=== PATIENT | male | born 1955 | race Caucasian/White ===

== ENCOUNTER 2018-06-26 15:26 | Inpatient (IN) | payer OTHER ==
[~2018-06-26] VITALS: Ht 175.3 cm; Wt 89.4 kg
[~2018-06-26 15:26] MED LIST: METFORMIN HCL1000 M1 PO
--- NOTE | 2018-06-26 16:09 | ED GENERAL ADULT ---
History of Present Illness General Chief Complaint: General Adult Stated Complaint: SIB GERMAIN HYPOTENSIV/DIZZINESS Source: patient, family, old records Exam Limitations: no limitations Vital Signs & Intake/Output Vital Signs & Intake/Output Vital Signs Date Time Temp Pulse Resp B/P B/P Pulse O2 O2 Flow FiO2 Mean Ox Delivery Rate 06/26 1619 90/48 06/26 1538 97.1 92 22 94/67 97 Allergies Coded Allergies: No Known Allergies (08/25/17) Reconcile Medications Metformin HCl 1,000 MG TABLET 1 TAB PO BID DIABETES (Reported) Triage Note: PER SISTER (PT KWINHAGAK) DISRRHEA AND VOMITING X 5-6 DAYS SEEN BY PMD TODAY AND BP WAS LOW, PT TOOK HIS LISINOPRIL THIS AM PT PASSED OUT LAST WEEKEND Triage Nurses Notes Reviewed? yes HPI: 62yo male with PMH of DM, EtOH subance abuse. Patient states that last weekend he began having profuse nausea vomiting and diarrhea. Patient states that so bad to the point that he had a syncopal episode during a vomiting episode. Patient is unsure how long he was L4. Patient states that since then he has been anorexic. He denies any further nausea vomiting or diarrhea however just has had very little appetite. He states that he's been having chicken soup occasionally but not as been it. Patient's sister came over to visit him today and then took him to his primary care physician Jeff found to be hypotensive. Patient's at the emergency department for evaluation. Patient denies any chest pain or palpitations. There is no shortness of breath. No coughing. No abdominal pain. Patient states that his last alcoholic drink was over a year ago. Past History Travel History Traveled to [place] past 21 day No Medical History Any Pertinent Medical History? see below for history Neurological: NONE EENT: NONE Cardiovascular: NONE Respiratory: NONE Gastrointestinal: NONE Hepatic: NONE Renal: NONE Musculoskeletal: NONE Psychiatric: alcohol dependence Endocrine: diabetes Blood Disorders: NONE Cancer(s): NONE COMMERCIAL DRIVER/Reproductive: NONE Surgical History Surgical History: non-contributory Psychosocial History What is your primary language Sinhala Tobacco Use: Never used ETOH Use: alcoholic Illicit Drug Use: denies illicit drug use Family History Hx Contributory? No Review of Systems Review of Systems Constitutional: Reports: see HPI, weakness. EENTM: Reports: no symptoms. Respiratory: Reports: no symptoms. Cardiovascular: Reports: no symptoms. GI: Reports: see HPI. Genitourinary: Reports: no symptoms. Musculoskeletal: Reports: no symptoms. Skin: Reports: no symptoms. Neurological/Psychological: Reports: no symptoms. Hematologic/Endocrine: Reports: no symptoms. Immunologic/Allergic: Reports: no symptoms. All Other Systems: Reviewed and Negative Physical Exam Physical Exam General Appearance: well developed/nourished, alert, awake, anxious, mild distress Head: atraumatic, normal appearance Eyes: Bilateral: PERRL, EOMI. Ears, Nose, Throat: normal pharynx, DRY MUCOSA Neck: normal inspection, supple, full range of motion Respiratory: normal breath sounds, chest non-tender, no respiratory distress, lungs clear Cardiovascular: regular rate/rhythm, normal peripheral pulses Gastrointestinal: normal bowel sounds, soft, non-tender, no organomegaly Back: normal inspection, normal range of motion Extremities: normal inspection, normal capillary refill, normal range of motion, no edema Neurologic/Psych: no motor/sensory deficits, awake, alert, oriented x 3, normal mood/affect Skin: intact, normal color, warm/dry Core Measures ACS in differential dx? No CVA/TIA Diagnosis: No Sepsis Present: No Sepsis Focused Exam Completed? No Progress Differential Diagnoses I considered the following diagnoses in my evaluation of the patient: [AMI, electrolyte abnormality, dehydration] Plan of Care: Orders Procedure Date/time Status LACTIC ACID 06/26 1840 Active Add-on Test (ER Only) 06/26 1749 Active CIWA 06/26 1749 Active ETHANOL 06/26 1602 Active MIXED VENOUS BLOOD GAS (GEN) 06/26 1541 Active Saline Lock 06/26 1540 Active Vital Signs 06/26 1540 Active Telemetry/Admissions Consultant 06/26 1540 Active CULTURE,URINE 06/26 1540 Active BLOOD CULTURE 06/26 1540 Active URINALYSIS 06/26 1540 Active TROPONIN LEVEL 06/26 1540 Active PHOSPHORUS 06/26 1540 Active MAGNESIUM 06/26 1540 Active LIPASE 06/26 1540 Active LACTIC ACID 06/26 1540 Active COMPREHENSIVE METABOLIC PANEL 06/26 1540 Active CBC WITHOUT DIFFERENTIAL 06/26 1540 Complete EKG 06/26 1540 Active Current Medications Sig/Geo Start time Last Medication Dose Stop Time Status Admin Magnesium Sulfate 1 GM Q2H 06/26 1715 AC (Mag Sulfate in D5) 06/26 2114 Dextrose/Water 100 ML (D5W) Sodium Chloride 2,721.54 ML ONCE 06/26 1545 AC 06/26 (Normal Saline 0.9%) 1645 Laboratory Tests 06/26/18 1602: Anion Gap 15, Estimated GFR 52 L, BUN/Creatinine Ratio 12.9, Glucose 170 H, Lactic Acid 1.3, Calcium 8.8, Phosphorus 2.9, Magnesium 0.9 *L, Total Bilirubin 0.5, AST 26, ALT 49, Alkaline Phosphatase 83, Troponin I < 0.01, Total Protein 7.4, Albumin 4.5, Globulin 2.9, Albumin/Globulin Ratio 1.6, Lipase < 10 L, CBC w Diff NO MAN DIFF REQ, RBC 5.05, MCV 87.2, MCH 29.4, MCHC 33.7, RDW 13.9, MPV 7.6, Gran % 71.8, Lymphocytes % 14.9 L, Monocytes % 10.5 H, Eosinophils % 1.9, Basophils % 0.9, Absolute Granulocytes 7.5 H, Absolute Lymphocytes 1.6, Absolute Monocytes 1.1 H, Absolute Eosinophils 0.2, Absolute Basophils 0.1, Serum Alcohol Pending 06/26/18 1541: Lipase Cancelled Microbiology 06/26 1630 BLOOD: Blood Culture - RECD 06/26 1602 BLOOD: Blood Culture - RECD 06/26 1540 URINE ROUT: Urine Culture - COLB Diagnostic Imaging: Viewed by Me: Radiology Read. Discussed w/RAD: Radiology Read. CXR Impression: PATIENT: OVIDIO KRUSE PRESENT AGE: 62 PATIENT ACCOUNT NO: [id number] : 57 LOCATION: [facility] ORDERING PHYSICIAN: Jerilyn SEVILLA SERVICE DATE: 06/26/18 EXAM TYPE: RAD - XRY-PORTABLE CHEST XRAY EXAMINATION: XR PORTABLE CHEST CLINICAL INFORMATION: Fever. COMPARISON: None TECHNIQUE: Portable frontal view of the chest was obtained. FINDINGS: No airspace opacities or pleural effusions are seen. The cardiomediastinal silhouette is normal. No acute osseous abnormality is seen. IMPRESSION: Clear lungs. No acute process. DICTATED BY: Rell Escobedo MD DATE /TIME DICTATED:06/26/181739 RECOVERY ROOM NURSE:TAMI DATE/TIME TRANSCRIBED: 06/26/181739 CONFIDENTIAL, DO NOT COPY WITHOUT APPROPRIATE AUTHORIZATION. < Electronically signed in Other Vendor System> SIGNED BY: Rell Escobedo MD 06/26/18 6820 Initial ED EKG: NSR, no ST T wave changes Departure Departure Disposition: STILL A PATIENT Condition: Stable Clinical Impression Primary Impression: Hypomagnesemia Secondary Impressions: Hypotension Referrals: Germain PETER,Erwin Brown (PCP/Family) Departure Forms: Customer Survey General Discharge Information Admission Note Spoke With: Yoni Albright MD Documentation of Exam: Documentation of any treatments & extenuating circumstances including Concerns Regarding Discharge (functional status, medication knowledge or non-compliance, living conditions, etc.) that warrant an admission rather than observation: [ Patient to be admitted to telemetry for hypomagnesemia and hypotension. Patient is very dehydrated. Patient needs magnesium replacement, telemetry monitoring, aggressive hydration.] Critical Care Note Critical Care Note Critical Care Time: non-applicable
[2018-06-26 16:15] LABS: ABSOLUTE BASOPHIL COUNT 0.1 /CUMM (0.0-0.2); ABSOLUTE EOSINOPHIL COUNT 0.2 /CUMM (0.0-0.7); ABSOLUTE GRANULOCYTE CT 7.5 /CUMM (1.4-6.5); ABSOLUTE LYMPH COUNT 1.6 /CUMM (1.2-3.4); ABSOLUTE MONOCYTE COUNT 1.1 /CUMM (0.10-0.60); BASOPHIL % 0.9 % (0.0-2.0); EOSINOPHIL % 1.9 % (0-5); GRANULOCYTE % 71.8 % (42.2-75.2); HEMATOCRIT 44.1 % (42-52); MEAN CORPUSCULAR HGB 29.4 PG (27.0-31.0); MEAN CORPUSCULAR HGB CONC 33.7 G/DL (33.0-37.0); MEAN CORPUSCULAR VOLUME 87.2 FL (80.0-94.0); MEAN PLATELET VOLUME 7.6 FL (7.4-10.4); PLATELET COUNT 267 /CUMM (130-400); RBC DISTRIBUTION WIDTH 13.9 % (11.5-14.5); RED BLOOD CELL CT 5.05 /CUMM (4.70-6.10); WHITE BLOOD CELL COUNT 10.5 /CUMM (4.8-10.8)
--- NOTE | 2018-06-26 17:53 | RADIOLOGY REPORT ---
EXAMINATION: XR PORTABLE CHEST CLINICAL INFORMATION: Fever. COMPARISON: None TECHNIQUE: Portable frontal view of the chest was obtained. FINDINGS: No airspace opacities or pleural effusions are seen. The cardiomediastinal silhouette is normal. No acute osseous abnormality is seen. IMPRESSION: Clear lungs. No acute process.
--- NOTE | 2018-06-26 18:17 | History & Physical ---
Tobias Wilson 06/26/181815: General Information and HPI History of Present Illness: 62 YO M with PMH of DM, and a previous hx alcohol and substance abuse (sober until relapse 11 months ago??), was sent to [facility] ED by his PCP after finding a low systolic pressure sitting in the 80s. In the ED patient was found to be hypotensive (90/48) and Mg level was found to be 0.9. The previous week the patient had an episode of dizziness resulting in an unwitnessed mechanical fall. He believes he lost conciousness and is unsure of how long the durations of LOC was but he estimates it was at least a few minutes. Upon waking up, pt stood up and walked to his recliner until the dizziness passed. Patient reports having an episode of non-bloody, non-bilious vomiting, as well as 2 episodes of diarrhea after this incident. This entire week he has had poor PO intake and has felt generally fatigued. Patient denies any auras, changes in vision, ringing sensations in ears, palpitations, chest pain, difficulty breathing, bowel/bladder incontinence, any weakness, or tingling sensation in extremities before, during, or after the incident. He denies any changing of his dietary habits/intake anytime within a month before the incident. Past History Travel History Traveled to [place] past 21 day No Medical History Neurological: NONE EENT: NONE Cardiovascular: NONE Respiratory: NONE Gastrointestinal: NONE Hepatic: NONE Renal: NONE Musculoskeletal: NONE Psychiatric: alcohol dependence Endocrine: diabetes Blood Disorders: NONE Cancer(s): NONE SUPERVISOR GLYCERIN/Reproductive: NONE Surgical History Surgical History: non-contributory Past Family/Social History Psychosocial History ETOH Use: alcoholic Illicit Drug Use: denies illicit drug use Review of Systems Review of Systems Constitutional: Reports: see HPI. Exam & Diagnostic Data Last 24 Hrs of Vital Signs/I&O Vital Signs Date Time Temp Pulse Resp B/P B/P Pulse O2 O2 Flow FiO2 Mean Ox Delivery Rate 06/27 0700 97.6 86 18 140/82 96 Room Air 06/26 2144 98.4 95 18 136/76 97 Room Air 06/26 1907 124/78 06/26 1900 97.4 90 18 161/87 97 Room Air 06/26 1619 90/48 06/26 1538 97.1 92 22 94/67 97 Intake & Output 06/27 0800 06/27 0000 06/26 1600 Intake Total 120 120 Output Total Balance 120 120 Intake, Oral 120 120 Patient 209 lb 209 lb 200 lb Weight Weight Bed scale Bed scale Measurement Method Physical Exam General Appearance Alert, Oriented X3, Cooperative Skin No Rashes Skin Temp/Moisture Exam: Warm/Dry Sepsis Skin Exam (color): Normal for Ethnicity HEENT Atraumatic, PERRLA, EOMI Neck Supple, No JVD Lymphatic Axillary nl, Cervical nl Cardiovascular Regular Rate, Normal S1, Normal S2 Lungs Clear to Auscultation, Normal Air Movement Abdomen Normal Bowel Sounds, Soft, No Tenderness Neurological Strength at 5/5 X4 Ext, Cranial Nerves 3-12 NL Extremities Normal Pulses, No Tenderness/Swelling Vascular No Prolonged Hepato Jugular Reflex, No carotid bruit Last 24 Hrs of Labs/Jeremiah: 06/26/18 1541: Lipase Cancelled Microbiology 06/26 1630 BLOOD: Blood Culture - RECD 06/26 1602 BLOOD: Blood Culture - RECD 06/26 1540 URINE ROUT: Urine Culture - COLB Assessment/Plan Assessment: 62 YO M with PMH of DM, and a previous hx alcohol and substance abuse (sober until relapse 11 months ago??), was sent to [facility] ED by his PCP after finding a low systolic pressure sitting in the 80s. # Hypotension (Idoipathic Orthostatic vs Dehydration) - NS bolus in ER showed improvement in pressure from 90 to 124. - Start maintenance fluids - Encourage PO intake (non restrictive diet) - Orthostatics and Vitals Q4 - PT to assess fall risk - Admit to telemetry # Hypomagnesemia - possibly due to decreased PO intake - possibly due to decreased absorption / increased urinary excretion 2/2 T2DM - start IV Mg - monitor Mg and BEP daily # DM - NSS/Accuchecks # Depression - Continue sertraline As Ranked By This Provider Problem List: 1. Hypotension 2. Hypomagnesemia 3. Fall Core Measures/Misc (08/03) Acute Coronary Syndrome ACS Diagnosis: No Congestive Heart Failure Congestive Heart Failure Diagnosis No Cerebrovascular Accident CVA/TIA Diagnosis: No VTE (View Protocol) VTE Risk Factors Age>40 No Mechanical VTE Prophylaxis d/t Other No VTE Pharm Prophylaxis d/t Other Sepsis (View protocol) If YES complete Sepsis Event Note If YES complete Sepsis Event Note Feli Seymour MD 06/26/18 1825: Core Measures/Misc (08/03) Acute Coronary Syndrome ACS Diagnosis: No Congestive Heart Failure Congestive Heart Failure Diagnosis No Cerebrovascular Accident CVA/TIA Diagnosis: No VTE (View Protocol) VTE Risk Factors Age>40 No Mechanical VTE Prophylaxis d/t Other No VTE Pharm Prophylaxis d/t Other Sepsis (View protocol) Sepsis Present: No If YES complete Sepsis Event Note If YES complete Sepsis Event Note Resident Review Statement Resident Statement: examined this patient, discussed with event marketing intern, agreed with event marketing intern Other Findings: 62-year-old gentleman with past medical history of diabetes, alcohol and substance abuse in the past, came to [facility] from his primary care physician office with a low blood pressure systolic 80s. According to the patient he was in usual state of health until a week ago following which he had dizziness followed by fall and lost consciousness. Patient is not sure for how many minutes he was unconscious. He woke up by himself and took rest in his recliner and spoke to his sister who is a nurse who suggested to take rest. During this episode patient denied chest pain, palpitation, headache, ringing of ears. Patient had vomiting following the fall with 2 episodes of diarrhea with no blood in it. Patient to crest the whole day. According to him he was not eating and drinking well. For the past 1 week he felt very weak. Today his daughter visited him and took him to his primary care physician and found to have low blood pressure hence sent to [facility] ED. At present patient denies chest pain, palpitation, nausea, vomiting, abdominal pain, weakness, diarrhea, constipation. Patient has never seen a glassware engraver in the past. No history of any stress test/echocardiogram done in the past. Past surgical history-inguinal hernia repair Social ifemebw-okm-jkcapg, alcoholic quit 11 months ago. No illicit drug use Family ccgqbum-bvyeuc-bzhkd cancer no history of any heart disease. No hardware placed in the body. On examination Patient conscious, well oriented. No acute distress HEENT-normal Extraocular movements-normal Cardiovascular [id number] no murmur Respiratory system-normal vesicular breath sounds Abdomen-soft bowel sounds heard Bilateral extremities-no edema pulses felt. GENERAL SUPERVISOR-3-12 cranial nerves intact. Strength 5 x 5. No decreased sensation. Admission vitals Temperature 97.1, pulse rate 92, respiratory rate 22, blood pressure 94/67---> 90/48 Admission labs WBC 10.5, hemoglobin 14.9, platelet count 267, sodium 135, potassium 4.5, BUN 18 , creatinine 1.4, lactic acid 1.3, glucose 170, phosphorus 2.9, magnesium 0.9, troponin 0 0.01, Pending urinalysis, blood culture, urine culture ED treatment Normal sinus bolus 2721.54 mL [30 mL/kg], magnesium 1 g in D5W x2 Seen by Dr. Waite in 2017 for colonoscopy and found to have 2 polyps with mild sigmoid diverticulosis, small internal hemorrhoids. Assessment and plan Problem list Hypotension secondary to dehydration-patient was given normal saline bolus in the ED. His blood pressure improved from systolic 90s-124. We will keep him on maintenance fluids at 75 mL/h. We will encourage p.o. intake. Vitals every shift Avoid antihypertensives Physical therapy in the a.m. in view of history of fall If patient has any telemetry events we will place cardiology consult Hypomagnesemia-his hypomagnesemia can be secondary due to decreased p.o. intake. Patient denies using any dprz-kki-ckoegfb medications/PPI/antibiotics. Patient denies history of hypomagnesemia in the past. His calcium is normal. Patient was given IV magnesium 2 g. We will follow with BEP and magnesium. Wagjfybr-Lpda-Ccdn and NovoLog sliding scale insulin. Depression-we will continue sertraline. Diet-heart healthy diet DVT prophylaxis-Lovenox CODE STATUS-full code Jose Ramon PETERYoni 06/27/18 0052: General Information and HPI MD Statement: I have seen and personally examined OVIDIO KRUSE and documented this H&P. The patient is a 63 year old M who presented with a patient stated chief complaint of [hypotension]. Source of Information: patient Allergies/Medications Allergies: Coded Allergies: No Known Allergies (08/25/17) Home Med list Metformin HCl 1,000 MG TABLET 1 TAB PO BID DIABETES (Reported) Sertraline HCl 50 MG TABLET 1 TAB PO DAILY DEPRESSION (Reported) Past History Medical History Psychiatric: alcohol dependence Endocrine: diabetes Past Family/Social History Psychosocial History Smoking Status: Never Smoked ETOH Use: alcoholic Illicit Drug Use: denies illicit drug use Review of Systems Review of Systems Constitutional: Reports: see HPI. Exam & Diagnostic Data Last 24 Hrs of Vital Signs/I&O Vital Signs Date Time Temp Pulse Resp B/P B/P Pulse O2 O2 Flow FiO2 Mean Ox Delivery Rate 06/26 2144 98.4 95 18 136/76 97 Room Air 06/26 1907 124/78 06/26 1900 97.4 90 18 161/87 97 Room Air 06/26 1619 90/48 06/26 1538 97.1 92 22 94/67 97 Intake & Output 06/27 0800 06/27 0000 06/26 1600 Intake Total 0 Output Total Balance 0 Intake, Oral 0 Patient 209 lb 200 lb Weight Weight Bed scale Measurement Method Physical Exam General Appearance Alert, Oriented X3, Cooperative Skin No Rashes Skin Temp/Moisture Exam: Warm/Dry Sepsis Skin Exam (color): Normal for Ethnicity HEENT Atraumatic, PERRLA, EOMI Neck Supple, No JVD Lymphatic Axillary nl, Cervical nl Cardiovascular Regular Rate, Normal S1, Normal S2 Lungs Clear to Auscultation, Normal Air Movement Abdomen Normal Bowel Sounds, Soft, No Tenderness Last 24 Hrs of Labs/Jeremiah: Laboratory Tests 06/26/18 1840: Lactic Acid Cancelled 06/26/18 1602: Anion Gap 15, Estimated GFR 52 L, BUN/Creatinine Ratio 12.9, Glucose 170 H, Lactic Acid 1.3, Calcium 8.8, Phosphorus 2.9, Magnesium 0.9 *L, Total Bilirubin 0.5, AST 26, ALT 49, Alkaline Phosphatase 83, Troponin I < 0.01, Total Protein 7.4, Albumin 4.5, Globulin 2.9, Albumin/Globulin Ratio 1.6, Lipase < 10 L, CBC w Diff NO MAN DIFF REQ, RBC 5.05, MCV 87.2, MCH 29.4, MCHC 33.7, RDW 13.9, MPV 7.6, Gran % 71.8, Lymphocytes % 14.9 L, Monocytes % 10.5 H, Eosinophils % 1.9, Basophils % 0.9, Absolute Granulocytes 7.5 H, Absolute Lymphocytes 1.6, Absolute Monocytes 1.1 H, Absolute Eosinophils 0.2, Absolute Basophils 0.1, Serum Alcohol < 10.0 06/26/18 1541: Lipase Cancelled Microbiology 06/26 1630 BLOOD: Blood Culture - RECD 06/26 1602 BLOOD: Blood Culture - RECD 06/26 1540 URINE ROUT: Urine Culture - COLB Core Measures/Misc (08/03) Sepsis (View protocol) If YES complete Sepsis Event Note If YES complete Sepsis Event Note Attending MD Review Statement Attending Statement Attending MD Statement: examined this patient, discuss w/resident/PA/JOURNEYMAN ELECTRICIAN, agreed w/resident/PA/JOURNEYMAN ELECTRICIAN, reviewed EMR data (avail), reviewed images Attending Assessment/Plan: This patient is a 62-year-old male with a significant past medical history for diabetes, alcohol (quit 11 months ago) and substance abuse, came to [facility] from his primary care physician office with a low blood pressure. According to the patient he was in usual state of health until a week ago following which he had dizziness followed by fall and loss of consciousness. Patient had vomiting following the fall with 2 episodes of diarrhea with no blood in it. For the past 1 week he felt very weak with poor PO intake. Today his daughter visited him and took him to his primary care physician where he was found to have a low blood pressure. Upon evaluation in the ED he is found to be Hypotensive (90s/ 50s), BUN 18, creatinine 1.4, lactic acid 1.3, and magnesium 0.9. The patient will be admitted to telemetry for pre-syncope, hypotension, dehydration and hypo magnesium. Full code.
[2018-06-26] MEDS ORDERED: SERTRALINE HCL50 MG PO (20:44)
[2018-06-26 21:44] VITALS: BP 136/76
[2018-06-27] VITALS (7 sets, daily range): BP systolic 120–140; BP diastolic 64–88
--- NOTE | 2018-06-27 05:24 | PN- Housestaff ---
See Addendum Subjective Follow-up For: Hypertension Hypomagnesemia Complaints: no complaints Tele-Events Since Last Visit: Normal sinus rhythm Subjective: Patient seen and examined at bedside no overnight events. No complaints. Patient denies chest pain, weakness, palpitation, nausea, vomiting, diarrhea. Review of Systems Constitutional: Reports: no symptoms. Cardiovascular: Reports: no symptoms. Respiratory: Reports: no symptoms. Gastrointestinal: Reports: no symptoms. Objective Last 24 Hrs of Vital Signs/I&O Vital Signs Date Time Temp Pulse Resp B/P B/P Pulse O2 O2 Flow FiO2 Mean Ox Delivery Rate 06/264 98.4 95 18 136/76 97 Room Air 06/26 1907 124/78 06/26 1900 97.4 90 18 161/87 97 Room Air 06/26 1619 90/48 06/26 1538 97.1 92 22 94/67 97 Intake & Output 06/27 0800 06/27 0000 06/26 1600 Intake Total 120 Output Total Balance 120 Intake, Oral 120 Patient 209 lb 200 lb Weight Weight Bed scale Measurement Method Physical Exam General Appearance: Alert, Oriented X3, Cooperative, No Acute Distress Cardiovascular: Regular Rate, Normal S1, Normal S2, No Murmurs Lungs: Clear to Auscultation Abdomen: Soft, No Tenderness Current Medications: Current Medications Sig/Geo Start time Last Medication Dose Route Stop Time Status Admin Acetaminophen 650 MG Q6PRN PRN 06/26 183 AC PO Enoxaparin Sodium 0 .STK-MED ONE 06/26 1918 DC SC Enoxaparin Sodium 40 MG DAILY 06/26 183 AC 06/26 SC 1919 Hydrocodone Bitart/ 1 TAB Q6P PRN 06/26 184 AC Acetaminophen PO Hydromorphone HCl 0.5 MG Q4P PRN 06/26 184 AC IV Insulin Aspart 0 TIDAC/HS 06/26 2100 AC SC Magnesium Sulfate 1 GM Q2H 06/27 0300 AC 06/27 Dextrose/Water 100 ML IV 06/27 0659 0522 Magnesium Sulfate 1 GM Q2H 06/26 1715 DC 06/26 Dextrose/Water 100 ML IV 06/26 2114 1842 Sertraline HCl 50 MG DAILY 06/27 0900 AC PO Sodium Chloride 1,000 ML Q13H 06/26 1845 DC 06/26 IV 2037 Sodium Chloride 2,721.54 ML ONCE 06/26 1545 AC 06/26 IV 1645 Last 24 Hrs of Lab/Jeremiah Results Last 24 Hrs of Labs/Mics: Laboratory Tests 06/27/18 0130: Anion Gap 7, Estimated GFR > 60, BUN/Creatinine Ratio 14.5, Magnesium 1.6 06/26/18 1840: Lactic Acid Cancelled 06/26/18 1602: Anion Gap 15, Estimated GFR 52 L, BUN/Creatinine Ratio 12.9, Glucose 170 H, Lactic Acid 1.3, Calcium 8.8, Phosphorus 2.9, Magnesium 0.9 *L, Total Bilirubin 0.5, AST 26, ALT 49, Alkaline Phosphatase 83, Troponin I < 0.01, Total Protein 7.4, Albumin 4.5, Globulin 2.9, Albumin/Globulin Ratio 1.6, Lipase < 10 L, CBC w Diff NO MAN DIFF REQ, RBC 5.05, MCV 87.2, MCH 29.4, MCHC 33.7, RDW 13.9, MPV 7.6, Gran % 71.8, Lymphocytes % 14.9 L, Monocytes % 10.5 H, Eosinophils % 1.9, Basophils % 0.9, Absolute Granulocytes 7.5 H, Absolute Lymphocytes 1.6, Absolute Monocytes 1.1 H, Absolute Eosinophils 0.2, Absolute Basophils 0.1, Serum Alcohol < 10.0 06/26/18 1541: Lipase Cancelled Microbiology 06/26 1630 BLOOD: Blood Culture - RECD 06/26 1602 BLOOD: Blood Culture - RECD 06/26 1540 URINE ROUT: Urine Culture - COLB Assessment/Plan Assessment: 62-year-old gentleman with past medical history of diabetes, alcohol and substance abuse in the past, came to [facility] from his primary care physician office with a low blood pressure Assessment and plan Hypotension secondary to dehydration-patient blood pressure improved with normal saline bolus. We will encourage p.o. intake Avoid antihypertensive Continue telemetry Physical therapy consult placed Hypomagnesemia-his hypomagnesemia can be secondary due to decreased p.o. intake. Patient denies using any nhjb-lax-kihxewk medications/PPI/antibiotics. Patient denies history of hypomagnesemia in the past. His calcium is normal. Patient is getting IV magnesium. We will follow BEP in the a.m. Hvhedpcm-Loev-Hmiq and NovoLog sliding scale insulin. Depression-we will continue sertraline. Diet-heart healthy diet DVT prophylaxis-Lovenox CODE STATUS-full code Problem List: 1. Hypomagnesemia Pain Ratin Pain Location: NONE Pain Goal: Remain pain free Pain Plan: Tylenol, morphine Tomorrow's Labs & Rationales: CBC,BEP
[2018-06-27 08:26] LABS: ABSOLUTE BASOPHIL COUNT 0 /CUMM (0.0-0.2); ABSOLUTE EOSINOPHIL COUNT 0.2 /CUMM (0.0-0.7); ABSOLUTE LYMPH COUNT 1.2 /CUMM (1.2-3.4); ABSOLUTE MONOCYTE COUNT 0.7 /CUMM (0.10-0.60); BASOPHIL % 0.7 % (0.0-2.0); EOSINOPHIL % 3.9 % (0-5); GRANULOCYTE % 65.2 % (42.2-75.2); MEAN CORPUSCULAR HGB 29.5 PG (27.0-31.0); MEAN CORPUSCULAR HGB CONC 33.9 G/DL (33.0-37.0); MEAN CORPUSCULAR VOLUME 87.1 FL (80.0-94.0); MEAN PLATELET VOLUME 7.4 FL (7.4-10.4); PLATELET COUNT 204 /CUMM (130-400); RBC DISTRIBUTION WIDTH 13.7 % (11.5-14.5); RED BLOOD CELL CT 4.12 /CUMM (4.70-6.10); WHITE BLOOD CELL COUNT 6.2 /CUMM (4.8-10.8)
[2018-06-27 08:43] LABS: HEMATOCRIT 35.9 % (42-52)
[2018-06-28 06:57] VITALS: BP 158/88
[2018-06-28 08:00] LABS: ABSOLUTE BASOPHIL COUNT 0.1 /CUMM (0.0-0.2); ABSOLUTE EOSINOPHIL COUNT 0.3 /CUMM (0.0-0.7); ABSOLUTE GRANULOCYTE CT 4.5 /CUMM (1.4-6.5); ABSOLUTE LYMPH COUNT 1.4 /CUMM (1.2-3.4); ABSOLUTE MONOCYTE COUNT 0.6 /CUMM (0.10-0.60); BASOPHIL % 0.7 % (0.0-2.0); EOSINOPHIL % 4.4 % (0-5); HEMATOCRIT 38.1 % (42-52); MEAN CORPUSCULAR HGB 28.9 PG (27.0-31.0); MEAN CORPUSCULAR HGB CONC 32.9 G/DL (33.0-37.0); MEAN CORPUSCULAR VOLUME 87.8 FL (80.0-94.0); MEAN PLATELET VOLUME 7.8 FL (7.4-10.4); PLATELET COUNT 205 /CUMM (130-400); RBC DISTRIBUTION WIDTH 14.3 % (11.5-14.5); RED BLOOD CELL CT 4.34 /CUMM (4.70-6.10)
--- NOTE | 2018-06-28 09:57 | Patient Discharge Instructions ---
Discharge Instructions General Discharge Information You were seen/treated for: HYPOTENSION Special Instructions: Please follow-up with your PCP within a week after discharge. Diet Continue normal diet: Yes Recommended Diet: Diabetic Activity Full Activity/No Limits: Yes Acute Coronary Syndrome Inclusion Criteria At DC or during hospital stay patient has or had the following: ACS DIAGNOSIS No Discharge Core Measures Meds if any: Prescribed or Continued at Discharge Meds if any: NOT Prescribed or Continued at Discharge Congestive Heart Failure Inclusion Criteria At DC or during hospital stay patient has or had the following: CHF DIAGNOSIS No Discharge Core Measures Meds if any: Prescribed or Continued at Discharge Meds if any: NOT Prescribed or Continued at Discharge Cerebrovascular accident Inclusion Criteria At DC or during hospital stay patient has or had the following: CVA/TIA Diagnosis No Discharge Core Measures Meds if any: Prescribed or Continued at Discharge Meds if any: NOT Prescribed or Continued at Discharge Venous thromboembolism Inclusion Criteria VTE Diagnosis No VTE Type NONE VTE Confirmed by (Test) NONE Discharge Core Measures - Per Current guidelines, there needs to be overlap - treatment for the first 5 days of Warfarin therapy. - If discharged on Warfarin prior to 5 days of - overlap therapy, the patient will need to be - assessed for post discharge needs including - *Post discharge parental anticoagulation - *Warfarin and/or parental anticoagulation education - *Follow up date to check INR post discharge At least 5 days overlap therapy as Inpatient No Meds if any: Prescribed or Continued at Discharge Note: Overlap Therapy is Warfarin and Anticoagulant Meds if any: NOT Prescribed or Continued at Discharge
[2018-06-28] MEDS ORDERED: LISINOPRIL10 M1 PO (09:58)
[2018-06-28] MEDS ORDERED: OMEPRAZOLE40 M1 PO (09:58)
--- NOTE | 2018-06-28 11:56 | PN- Housestaff ---
See Addendum Subjective Follow-up For: Hypertension (resolved) Hypomagnesemia (resolved) Subjective: Patient seen seated comfortably at the bedside, currently he has no complaints. He denies dizziness, chest pain, nausea/vomiting/diarrhea. He is eager to be discharged home today, as his symptoms have resolved. Review of Systems Constitutional: Denies: chills, diaphoresis, fever, malaise. Objective Last 24 Hrs of Vital Signs/I&O Vital Signs Date Time Temp Pulse Resp B/P B/P Pulse O2 O2 Flow FiO2 Mean Ox Delivery Rate 06/28 0657 98.2 85 18 158/88 98 Room Air 06/27 2206 98.3 80 18 134/76 97 Room Air 06/27 1437 97.3 88 18 120/64 96 Room Air 06/27 1240 98.3 90 18 120/70 97 Room Air Intake & Output 06/28 1600 06/28 0800 06/28 0000 Intake Total 240 375 Output Total Balance 240 375 Intake, Oral 240 375 Number 0 Bowel Movements Patient 89.358 kg Weight Weight Bed scale Measurement Method Physical Exam General Appearance: Alert, Oriented X3, Cooperative, No Acute Distress Current Medications: Current Medications Sig/Geo Start time Last Medication Dose Route Stop Time Status Admin Acetaminophen 650 MG Q6PRN PRN 06/26 1830 AC PO Enoxaparin Sodium 40 MG 1900 06/27 1900 AC 06/27 SC 2040 Hydrocodone Bitart/ 1 TAB Q6P PRN 06/26 1845 AC Acetaminophen PO Hydromorphone HCl 0.5 MG Q4P PRN 06/26 1845 AC IV Insulin Aspart 0 AT BEDTIME 06/28 2100 AC SC Insulin Aspart 0 TIDAC/HS 06/26 2100 AC 06/27 SC 1230 Lisinopril 10 MG DAILY 06/28 0958 AC PO Omeprazole 40 MG DAILY AC 06/28 0958 AC PO Sertraline HCl 50 MG DAILY 06/27 0900 AC 06/28 PO 0843 Sodium Chloride 2,721.54 ML ONCE 06/26 1545 AC 06/26 IV 1645 Last 24 Hrs of Lab/Jeremiah Results Last 24 Hrs of Labs/Mics: Laboratory Tests 06/28/18 0620: Anion Gap 10, Estimated GFR > 60, BUN/Creatinine Ratio 12.2, Magnesium 1.8, CBC w Diff NO MAN DIFF REQ, RBC 4.34 L, MCV 87.8, MCH 28.9, MCHC 32.9 L, RDW 14.3, MPV 7.8, Gran % 65.0, Lymphocytes % 20.7, Monocytes % 9.2, Eosinophils % 4.4, Basophils % 0.7, Absolute Granulocytes 4.5, Absolute Lymphocytes 1.4, Absolute Monocytes 0.6, Absolute Eosinophils 0.3, Absolute Basophils 0.1 Assessment/Plan Assessment: 62-year-old gentleman with past medical history of diabetes, alcohol and substance abuse in the past, came to [facility] from his primary care physician office with a low blood pressure. Blood pressure this morning improved to 142/ 64. Problems: 1. Hypotension 2. Hypomagnesemia 3. Diabetes mellitus 4. Depression Plan: * Continue Lisinopril * Insulin sliding scale * Continue Sertraline Diet-heart healthy diet DVT prophylaxis-Lovenox CODE STATUS-full code Problem List: 1. Hypomagnesemia 2. Hypotension Pain Ratin Pain Location: none Pain Goal: Pain 4 or less Pain Plan: per pathway Tomorrow's Labs & Rationales: none
[2018-06-28 12:00] VITALS: BP 142/64
== END 2018-06-28 13:40 | DRG 316 ==
LOC: ERH 15:26 → ERHI 18:12 → ENRESERV 19:12 → ENTRNSPT 19:45 → EDTRNSPTSTS 19:56 → 1NO 20:00 → ERHI 20:00 → 1NO 20:01 → CMPTRNSPT 20:14 → 1NO 21:37 → ENPENDDIS 06-28 12:23 → 1NO 06-28 13:40
PROVIDERS: Physician Assistant; Student in an Organized Health Care Education/Training Program
DX: I95.9 Hypotension, unspecified (principal); E83.42 Hypomagnesemia; E86.0 Dehydration; E11.9 Type 2 diabetes mellitus without complications; Z79.84 Long term (current) use of oral hypoglycemic drugs; F32.9 Major depressive disorder, single episode, unspecified
CPT/HCPCS: 1NSP; 36592; 71045; 82436; 87040; 87086; 93005; 93010; 96374; 97116-GO; 97162-GP; G0480; J1650